=== PATIENT | female | born 1945 | race Caucasian/White ===

== ENCOUNTER → 2023-10-18 07:06 | Outpatient (REF) | payer MEDICARE, SELFPAY | LOC: DHCBC/DCA 07:06 | PROVIDERS: ATTENDING PHYSICIAN Internal Medicine Cardiovascular Disease; FAMILY PHYSICIAN Family Medicine | DX: I42.8 Other cardiomyopathies (principal) | CPT/HCPCS: 78452; 93017; A9500; J2785 ==